=== PATIENT | male | born 1955 | race Two or more races ===

== ENCOUNTER 2021-04-15 16:50 | Outpatient (CLI) | payer OTHER | END 2021-04-15 17:00 | disposition home or self-care (01) | LOC: LAB 16:50 | PROVIDERS: ATTEND Urology | DX: R97.20 Elevated prostate specific antigen [PSA] (principal) ==

== ENCOUNTER 2021-05-11 07:10 | Outpatient (CLI) | payer OTHER | END 2021-05-11 07:12 | disposition home or self-care (01) | LOC: SONOGRAMA 07:10 | PROVIDERS: ATTEND Urology | DX: C64.1 Malignant neoplasm of right kidney, except renal pelvis (principal); D29.1 Benign neoplasm of prostate; R97.20 Elevated prostate specific antigen [PSA] ==

== ENCOUNTER 2022-06-07 11:43 | Outpatient (CLI) | payer OTHER | END 2022-06-07 11:44 | disposition home or self-care (01) | LOC: LAB 11:43 | PROVIDERS: ATTEND Urology | DX: R97.20 Elevated prostate specific antigen [PSA] (principal) ==

== ENCOUNTER 2022-07-14 07:05 | Outpatient (CLI) | payer OTHER | END 2022-07-14 07:14 | disposition home or self-care (01) | LOC: SONOGRAMA 07:05 | PROVIDERS: ATTEND Urology | DX: R97.20 Elevated prostate specific antigen [PSA] (principal) ==